=== PATIENT | male | born 1965 | race Two or more races ===

== ENCOUNTER 2024-12-06 15:32 | Inpatient (IN) | payer BC, OTHER ==
[~2024-12-06] VITALS: Ht 172.7 cm; Wt 95.6 kg
--- NOTE | 2024-12-06 15:40 | ECG ---
[facility] Test Date: 2024-12-06 Test Time: 15:39:48 Pat Name: FELICIA COLEMAN Department: ER Room: Gender: M Disposal Worker: KM : 1965 Requested By: CHETAN ZHENG Order Number: [id number] Reading MD: Measurements Intervals [place] Rate: 97 P: 63 ND: 151 QRS: 36 QRSD: 85 T: 27 QT: 342 QTc: 435 Interpretive Statements Sinus rhythm Baseline wander in lead(s) I,II,III,aVR,aVF,V2,V3,V4,V5,V6 Please click the below link to view image of tracing.
--- NOTE | 2024-12-06 15:52 | ED.PDOC ---
HPI Comments 59 y.o male presents to the ED for a chief complaint of left sided chest pain radiating to his left arm and back associated with SOB that started 2 hours ago s/p using the restroom at home. Patient describes pain as a "deep ache", is constant, and rating a 3/10 on the pain scale. Patient reports mild SOB with the inability to take a full deep breath. Patient denies any straining in the restroom, nausea, vomiting, diarrhea, fever, chills, abdominal pain. No medical history or allergies reported. Chief Complaint: Chest Pain Time Seen by MD: 15:44 Reviewed Notes: Nurses Notes, Medications, Allergies Allergies: Coded Allergies: NO KNOWN ALLERGIES (Unverified , 12/06/24) Information Source: Patient Mode of Arrival: Ambulatory Severity: Moderate Timing: Hours (2) Duration: Since onset Location: Chest (L) Radiation: Back, Arm (L) Quality: Aching Onset: At Rest Cardiac Risk Factors: Smoker PE Risk Factors: None History of: None Modifying Factors: Nothing Associated Signs and Symptoms: SOB, Back Pain Past Medical History PAST MEDICAL HISTORY: Denies Surgical History: Denies all surgeries Family History Family History: Family hx of heart marcio Social History Smoker: Other (vape ) Alcohol: Denies ETOH Use Drugs: Denies Drug Use Lives In: Home Constitutional: denies: chills, diaphoresis, fatigue, fever, malaise, sweats, weakness, others EENTM: denies: blurred vision, double vision, ear bleeding, ear discharge, ear drainage, ear pain, ear ringing, eye pain, eye redness, hearing loss, mouth pain, mouth swelling, nasal discharge, nose bleeding, nose congestion, nose pain, photophobia, tearing, throat pain, throat swelling, voice changes, others Respiratory: reports: shortness of breath; denies: cough, hemoptysis, orthopnea, SOB at rest, SOB with excertion, stridor, wheezing, others Cardiovascular: reports: chest pain, left arm pain; denies: dizzy spells, diaphoresis, Dyspnea on exertion, edema, irregular heart beat, lightheadedness, palpitations, PND, syncope, others Gastrointestinal: denies: abdomen distended, abdominal pain, blood streaked bowels, constipated, diarrhea, dysphagia, difficulty swallowing, hematemesis, melena, nausea, poor appetite, poor fluid intake, rectal bleeding, rectal pain, vomiting, others Genitourinary: denies: burning, dysuria, flank pain, frequency, hematuria, incontinence, penile discharge, penile sore, pain, testicle pain, testicle swelling, urgency, others Neurological: denies: dizziness, fainting, headache, left sided numbness, left sided weakness, numbness, paresthesia, pre-existing deficit, right sided numbness, right sided weakness, seizure, speech problems, tingling, tremors, weakness, others Musculoskeletal: reports: back pain; denies: gout, joint pain, joint swelling, muscle pain, muscle stiffness, neck pain, others Integumetry: denies: bruises, change in color, change in hair/nails, dryness, laceration, lesions, lumps, rash, wounds, others Allergic/Immunocompromised: denies: Difficulty Healing, Frequent Infections, Hives, Itching, others Hematologic/Lymphatic: denies: anemia, blood clots, easy bleeding, easy bruising, swollen glands, others Endocrine: denies: excessive hunger, excessive sweating, excessive thirst, excessive urination, flushing, intolerance to cold, intolerance to heat, unex plained weight gain, unexplained weight loss, others Psychiatric: denies: anxiety, bipolar disorder, depression, hopeless, panic disorder, schizophrenia, sleepless, suicidal, others All Other Systems: Reviewed and Negative Physical Exam General Appearance: Moderate Distress HEENT: Normal ENT Inspection, Pharynx Normal, TMs Normal Neck: Full Range of Motion, Non-Tender, Normal, Normal Inspection Respiratory: Chest Non-Tender, Lungs Clear, No Accessory Muscle Use, No Respiratory Distress, Normal Breath Sounds Cardiovascular: No Edema, No JVD, No Murmur, No Gallop, Normal Peripheral Pulses, Regular Rate/Rhythm Breast Exam: Deferred Gastrointestinal: No Organomegaly, Non Tender, No Pulsatile Mass, Normal Bowel Sounds, Soft Genitalia: Deferred Pelvic: Deferred Rectal: Deferred Extremities: No calf tenderness, Normal capillary refill, Normal inspection, Normal range of motion, Non-tender, No pedal edema Musculoskeletal : Apperance: Normal Neurologic: Alert, 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 Was a procedure done?: No CP Differential Dx Differential Diagnosis: N/A Differential Diagnosis: Angina, Chest Wall Pain, Myocardial Infarction, Pericarditis X-Ray, Labs, Meds, VS Vital Signs Date Time Temp Pulse Resp B/P (MAP) Pulse Ox O2 Delivery O2 Flow Rate FiO2 12/06/24 16:33 91 12/06/24 15:52 97 12/06/24 15:45 98.1 95 17 199/87 (124) 96 12/06/24 15:39 97 Lab Test 12/06/24 16:39 Range/Units White Blood Count 7.5 4.4-10.8 10^3/uL Red Blood Count 5.93 H 4.5-5.90 10^6/uL Hemoglobin 17.9 H 13.5-17.5 g/dL Hematocrit 51.6 41.0-53.0 % Mean Corpuscular Volume 86.9 80.0-100.0 fL Mean Corpuscular Hemoglobin 30.1 28.0-32.0 pg Mean Corpuscular Hemoglobin Concent 34.7 32.0-36.0 g/dL Red Cell Distribution Width 13.7 11.8-14.3 % Platelet Count 211 140-450 10^3/uL Mean Platelet Volume 8.7 6.9-10.8 fL Neutrophils (%) (Auto) 75.3 37.0-80.0 % Lymphocytes (%) (Auto) 18.1 10.0-50.0 % Monocytes (%) (Auto) 4.9 0.0-12.0 % Eosinophils (%) (Auto) 1.1 0.0-7.0 % Basophils (%) (Auto) 0.6 0.0-2.0 % Neutrophils # (Auto) 5.6 1.6-8.6 10 ^3/uL Lymphocytes # (Auto) 1.4 0.4-5.4 10 ^3/uL Monocytes # (Auto) 0.4 0-1.3 10 ^3/uL Eosinophils # (Auto) 0.1 0-0.8 10 ^3/uL Basophils # (Auto) 0 0-0.2 10 ^3/uL Nucleated Red Blood Cells 0.2 % D-Dimer, Quantitative < 0.19 0.0-0.49 mg/L FEU Sodium Level 136 136-145 mmol/L Potassium Level 4.3 3.5-5.1 mmol/L Chloride Level 102 98-107 mmol/L Carbon Dioxide Level 24 20-31 mmol/L Anion Gap 10 5-15 Blood Urea Nitrogen 10 9-23 mg/dL Creatinine 0.98 0.700-1.30 mg/dL Glomerular Filtration Rate Calc 88 >90 mL/min BUN/Creatinine Ratio 10.2 10.0-20.0 Serum Glucose 361 H 74-106 mg/dL Calcium Level 10.3 8.7-10.4 mg/dL Total Bilirubin 0.4 0.2-1.0 mg/dL Aspartate Amino Transferase (AST) 14 13-40 U/L Alanine Aminotransferase (ALT) 38 7-40 U/L Alkaline Phosphatase 91 46-116 U/L Troponin I High Sensitivity 58 *H </=54 ng/L Total Protein 6.8 5.7-8.2 g/dL Albumin 4.5 3.2-4.8 g/dL XY CHEST TWO VIEWS ROUTINE IMPRESSION: Mild interstitial prominence of the mid and lower lung zones. Otherwise no evidence for acute cardiopulmonary disease. The labs are pending at this time We spoke with the patient and the patient was being admitted to the hospitalist The patient was given aspirin here in the emergency department's We are concerned that this patient may have acute coronary syndrome The troponin level came back elevated at 58 We are awaiting the repeat troponins The patient was being admitted to the hospitalist Images Reviewed?: Images reviewed and evaluated by me Time of 1ST Reevaluation: 15:48 Reevaluation 1ST: Unchanged Patient Education/Counseling: Diagnosis, Treatment, Prognosis Family Education/Counseling: No Family Present Departure 1 Departure Time of Disposition: 17:35 Impression: Primary Impression: Acute myocardial ischemia Additional Impression: Elevated troponin Disposition: 09 ADMITTED INPATIENT Admit to: Tele Condition: Fair Critical Care Note Critical Care Time?: No Stability Stability form required: Yes Unstable for transfer: Telemetry monitoring (Telemetry monitoring required), ED Physician Assesment (Clinical assesment) Heart Score Heart Score: Heart Score Response (Comments) Value History Moderate Suspicious 1 EKG Normal 0 Age 45-64 1 Risk Factors 1 or 2 risk factors 1 Troponin 1-2 x's Normal limit 1 Total 4 I personally scribed for MAVIS,CAROLINA B MD ([email or web address]) on 12/06/24 at 15:52. Electronically submitted by Giulia Hanks ([facility]). I personally scribed for CAROLINA GAMBLE MD (DVPASLE) on 12/06/24 at 16:38. Electronically submitted by Giulia Hanks ([facility]). CAROLINA GAMBLE MD Dec 06, 2024 15:52
--- NOTE | 2024-12-06 16:11 | DVH ---
XY CHEST TWO VIEWS ROUTINE CLINICAL HISTORY: CP COMPARISON: None TECHNIQUE: Frontal and lateral view of the chest was obtained FINDINGS: Lines and Tubes: None Lungs: No focal consolidation. Mild interstitial prominence of the mid and lower lung zones Pleura: No effusion. No pneumothorax. Cardiomediastinal contours: Unremarkable Bones: No acute osseous abnormality. IMPRESSION: Mild interstitial prominence of the mid and lower lung zones. Otherwise no evidence for acute cardio pulmonary disease.
[2024-12-06 17:00] LABS: Basophils # (auto) 0 10 ^3/uL (0-0.2); Basophils % (auto) 0.6 % (0.0-2.0); Eosinophils # (auto) 0.1 10 ^3/uL (0-0.8); Hemoglobin 17.9 g/dL (13.5-17.5); Lymphocytes # (auto) 1.4 10 ^3/uL (0.4-5.4); Mean Corpuscular Hemoglobin 30.1 pg (28.0-32.0); Monocytes # (auto) 0.4 10 ^3/uL (0-1.3)
[2024-12-06 17:03] LABS: Eosinophils % (auto) 1.1 % (0.0-7.0); Hematocrit 51.6 % (41.0-53.0); Lymphocytes % (auto) 18.1 % (10.0-50.0); Mean Corpuscular Hgb Conc. 34.7 g/dL (32.0-36.0); Mean Corpuscular Volume 86.9 fL (80.0-100.0); Monocytes % (auto) 4.9 % (0.0-12.0); Neutrophils # (auto) 5.6 10 ^3/uL (1.6-8.6); Neutrophils % (auto) 75.3 % (37.0-80.0); Nucleated Red Blood Cells % 0.2 %; Platelet Count (auto) 211 10^3/uL (140-450); Red Blood Cells 5.93 10^6/uL (4.5-5.90); Red Cell Distribution Width 13.7 % (11.8-14.3); White Blood Cell 7.5 10^3/uL (4.4-10.8)
[2024-12-06 17:12] LABS: Alanine Aminotransferase 38 U/L (7-40); Albumin 4.5 g/dL (3.2-4.8); Alkaline Phosphatase 91 U/L (46-116); Anion Gap 10 (5-15); Aspartate Aminotransferase 14 U/L (13-40); BUN/Creatinine Ratio 10.2 (10.0-20.0); Bilirubin, Total 0.4 mg/dL (0.2-1.0); Blood Urea Nitrogen 10 mg/dL (9-23); Calcium 10.3 mg/dL (8.7-10.4); Carbon Dioxide 24 mmol/L (20-31); Chloride 102 mmol/L (98-107); Potassium 4.3 mmol/L (3.5-5.1); Total Protein 6.8 g/dL (5.7-8.2)
[2024-12-06 17:17] LABS: Glucose 361 mg/dL (74-106); Sodium 136 mmol/L (136-145)
[2024-12-06 18:55] LABS: INR 0.91 (0.9-1.15); Partial Thromboplastin Time 26.2 SEC (24.5-34.5); Prothrombin Time 9.7 sec (9.3-11.8)
[2024-12-06] MEDS: HEPARIN SODIUM (PORCINE) 5000 UNITS/ML 1ML VIAL IV ONE (22:09)
[2024-12-06] MEDS: ASPirin 81 mg TAB PO ONE (22:09)
[2024-12-06 22:18] VITALS: PULSE 91; RESP 22; O2SAT 92
[2024-12-06] MEDS ORDERED: ONDANSETRON HCL 4 MG/2 ML VIAL IV PRN (23:15)
[2024-12-06] MEDS ORDERED: MORPHINE SULFATE INJ 2 MG/ml SYRG IV PRN (23:15)
[2024-12-06] MEDS ORDERED: NITROGLYCERIN 0.4 MG SL TAB SL PRN (23:15)
[2024-12-06] MEDS: ATORVASTATIN 20 MG TAB PO ONE (23:44)
[2024-12-07] VITALS (7 sets, daily range): BP systolic 118–167; BP diastolic 77–105; PULSE 79–102; RESP 14–22; TEMP 98.1; O2SAT 94–98
[2024-12-07] MEDS: HEPARIN DRIP/D5W 100UNITS/ML 250 ML IV SCH ×2 (00:20→08:34)
--- NOTE | 2024-12-07 00:30 | DVHHP2 ---
History of Present Illness Reason for Visit: Shortness for breath History of Present Illness 59-year-old male presents for evaluation of shortness for breath. Patient reports developing shortness for breath proximally at 12:00 p.m. today. He states the symptoms lasted until he got to the emergency department for about 3 hours. He reports left-sided chest discomfort aching/dullness. He states his symptoms were radiating to his left arm. He also reports episodes of nausea. Past Medical History Denies Past Surgical History Denies Family History Heart disease Smoke: No ALCOHOL: none Drugs: None Lives: with Family Review of Systems Review of Systems Review of systems are currently negative otherwise addressed in HPI. Allergies: Coded Allergies: NO KNOWN ALLERGIES (Unverified , 12/06/24) Medications Current Medications Medications Dose Ordered Sig/Anoop Route Start Time Stop Time Status Last Admin Dose Admin Heparin Sodium/ Dextrose 250 ml @ 10 mls/hr Q24H IV 12/06/24 18:30 12/07/24 00:20 10 MLS/HR Aspirin 162 mg DAILY PO 12/07/24 10:00 Atorvastatin Calcium 10 mg HS PO 12/07/24 22:00 Ondansetron HCl 4 mg Q4HP PRN IV 12/06/24 23:15 Nitroglycerin 0.4 mg Q5MINP PRN SL 12/06/24 23:15 Morphine Sulfate 2 mg Q30M PRN IV 12/06/24 23:15 Exam Vital Signs Vital Signs Date Time Temp Pulse Resp B/P (MAP) Pulse Ox O2 Delivery O2 Flow Rate FiO2 12/07/24 00:24 98.2 75 17 143/87 (105) 95 98.2 12/06/24 22:18 Room Air* 0 21 Exam Gen: 59-year-old male in mild distress Skin: Warm, dry, normal color and texture, no rash. HEENT: Normocephalic atraumatic, mucous membranes moist and pink. Neck: Cervical and supraclavicular nodes normal without enlargement, trachea is midline, thyroid gland is normal without masses. Pulmonary: Clear to auscultation and percussion bilaterally. Cardiac: Regular rate and rhythm. No murmur Abdomen: Soft, nontender, nondistended, bowel sounds present all 4 quadrants, no guarding, no rigidity, no organomegaly. Extremities: No cyanosis, clubbing, no edema Neuro: Cranial nerves II through XII grossly intact, normal affect and speech, no focal motor deficits. Labs/Xrays ORDERING PHYSICIAN: CAROLINA GAMBLE MD PROCEDURE(s): CXR2 - CHEST TWO VIEWS ROUTINE REASON: CP ORDER NUMBER(s): [id number], ACCESSION NUMBER(s): [id number] XY CHEST TWO VIEWS ROUTINE CLINICAL HISTORY: CP COMPARISON: None TECHNIQUE: Frontal and lateral view of the chest was obtained FINDINGS: Lines and Tubes: None Lungs: No focal consolidation. Mild interstitial prominence of the mid and lower lung zones Pleura: No effusion. No pneumothorax. Cardiomediastinal contours: Unremarkable Bones: No acute osseous abnormality. IMPRESSION: Mild interstitial prominence of the mid and lower lung zones. Otherwise no evidence for acute cardiopulmonary disease. Labs Test 12/06/24 23:25 12/06/24 16:39 Range/Units Troponin I High Sensitivity 1227 *H </=54 ng/L White Blood Count 7.5 4.4-10.8 10^3/uL Red Blood Count 5.93 H 4.5-5.90 10^6/uL Hemoglobin 17.9 H 13.5-17.5 g/dL Hematocrit 51.6 41.0-53.0 % Mean Corpuscular Volume 86.9 80.0-100.0 fL Mean Corpuscular Hemoglobin 30.1 28.0-32.0 pg Mean Corpuscular Hemoglobin Concent 34.7 32.0-36.0 g/dL Red Cell Distribution Width 13.7 11.8-14.3 % Platelet Count 211 140-450 10^3/uL Mean Platelet Volume 8.7 6.9-10.8 fL Neutrophils (%) (Auto) 75.3 37.0-80.0 % Lymphocytes (%) (Auto) 18.1 10.0-50.0 % Monocytes (%) (Auto) 4.9 0.0-12.0 % Eosinophils (%) (Auto) 1.1 0.0-7.0 % Basophils (%) (Auto) 0.6 0.0-2.0 % Neutrophils # (Auto) 5.6 1.6-8.6 10 ^3/uL Lymphocytes # (Auto) 1.4 0.4-5.4 10 ^3/uL Monocytes # (Auto) 0.4 0-1.3 10 ^3/uL Eosinophils # (Auto) 0.1 0-0.8 10 ^3/uL Basophils # (Auto) 0 0-0.2 10 ^3/uL Nucleated Red Blood Cells 0.2 % Prothrombin Time 9.7 9.3-11.8 sec Prothrombin Time INR 0.91 0.9-1.15 Activated Partial Thromboplast Time 26.2 24.5-34.5 SEC D-Dimer, Quantitative < 0.19 0.0-0.49 mg/L FEU Sodium Level 136 136-145 mmol/L Potassium Level 4.3 3.5-5.1 mmol/L Chloride Level 102 98-107 mmol/L Carbon Dioxide Level 24 20-31 mmol/L Anion Gap 10 5-15 Blood Urea Nitrogen 10 9-23 mg/dL Creatinine 0.98 0.700-1.30 mg/dL Glomerular Filtration Rate Calc 88 >90 mL/min BUN/Creatinine Ratio 10.2 10.0-20.0 Serum Glucose 361 H 74-106 mg/dL Calcium Level 10.3 8.7-10.4 mg/dL Total Bilirubin 0.4 0.2-1.0 mg/dL Aspartate Amino Transferase (AST) 14 13-40 U/L Alanine Aminotransferase (ALT) 38 7-40 U/L Alkaline Phosphatase 91 46-116 U/L Total Protein 6.8 5.7-8.2 g/dL Albumin 4.5 3.2-4.8 g/dL Assessment/Plan Assessment/Plan Assessment NSTEMI Accelerated hypertension Plan Admit the patient to telemetry to the hospitalist Continue heparin drip started by ER provider NPO Cardiology consult Continue treatment per orders. Plan discussed with: Patient My Orders Orders - JIMI CANSECO AGACNP Procedure Category Date Status Time Aspirin Tablet PHA 12/07/24 In Process 10:00 Atorvastatin (Lipitor) PHA 12/07/24 In Process 22:00 Admit ADMIT 12/06/24 Transmitted 23:03 Ondansetron Hcl PHA 12/06/24 In Process (Zofran) 23:15 Npo (Nothing By DIET 12/07/24 Transmitted Mouth) Diet Breakfast Echo 2d Mode Cardiac US 12/06/24 Logged DOP 23:03 Condition: Fair ZULEMA 12/06/24 In Process 23:03 Bedrest With Bathroom ZULEMA 12/06/24 In Process Privileg 23:03 Nitroglycerin PHA 12/06/24 In Process Sublingual (Ntrostat 23:15 Morphine Sulfate PHA 12/06/24 In Process Injection 23:15 Notify Of Changes [facility] 12/06/24 In Process From Base 23:03 Can Line Examiner For [facility] 12/06/24 In Process 24 Hours 23:03 Emergency Dysrhythmia [facility] 12/06/24 In Process Protocol 23:03 Rhythm Strips Once [facility] 12/06/24 In Process Every Shift 23:03 Oxygen By Nasal RT 12/06/24 Transmitted Cannula 23:03 Basic Metabolic Panel LAB 12/07/24 Logged 04:00 Date of Service: Dec 06, 2024 Billing Provider: JIMI CANSECO Common Visit Codes: [id number] INP/OBS CARE (HIGH) JIMI CANSECO Dec 07, 2024 00:30
[2024-12-07 04:06] LABS: Triglycerides 515 mg/dL (< 150)
[2024-12-07 04:08] LABS: HDL Cholesterol 44 mg/dL (40-59)
[2024-12-07 04:09] LABS: Cholesterol 216 mg/dL (< 200)
[2024-12-07 07:43] LABS: Chloride 101 mmol/L (98-107); Potassium 4.1 mmol/L (3.5-5.1)
[2024-12-07 07:44] LABS: Anion Gap 10 (5-15); Carbon Dioxide 24 mmol/L (20-31)
[2024-12-07 07:45] LABS: Calcium 10.1 mg/dL (8.7-10.4)
[2024-12-07 07:50] LABS: BUN/Creatinine Ratio 10.2 (10.0-20.0); Blood Urea Nitrogen 11 mg/dL (9-23); Glucose 304 mg/dL (74-106); Sodium 135 mmol/L (136-145)
[2024-12-07 07:54] LABS: INR 0.99 (0.9-1.15); Partial Thromboplastin Time 37.3 SEC (24.5-34.5); Prothrombin Time 10.5 sec (9.3-11.8)
[2024-12-07] MEDS: ASPirin 81 mg TAB PO SCH (09:59)
--- NOTE | 2024-12-07 10:08 | DVHINCON2 ---
[place] [facility] 12/07/24 1008: Date Seen: Dec 07, 2024 Referring Physician MD Mariana Reason for Consultation elevated troponin History of Present Illness This is a 59-year-old male patient who presents to the emergency room with chief complaint of chest pain. The patient reports that the chest pain began yesterday at approximately 11:00 a.m. He describes the pain as unprovoked, constant, pressure-like in nature, left-sided with radiation to his left shoulder and upper back. Associated symptoms include shortness of breath and lightheadedness. The patient reports that after approximately 3 hours of unrelieved pain he called an UBER to bring him to the emergency room. Initial twelve lead electrocardiogram reveals normal sinus rhythm with baseline wander. Initial troponin level of 58ng/L with significant up trend and peak level at 1227ng/L. Significant past medical history includes dyslipidemia and obesity. The patient denies following up with any providers in the outpatient setting and states he has not seen a primary care provider in "a really long time". Past Medical History Past medical history reviewed. No other significant than mentioned above. Past Surgical History Denies all previous surgeries Family History Family history reviewed. Social History Patient admits to vaping daily Patient denies any illicit drug use Patient denies any alcohol use Allergies: Coded Allergies: NO KNOWN ALLERGIES (Unverified , 12/06/24) Home Meds Denies taking any prescribed medications Current Medications Current Medications Medications (Trade) Dose Ordered Sig/Anoop Route PRN Reason Start Time Stop Time Status Last Admin Heparin Sodium/ Dextrose 250 ml @ 10 mls/hr Q24H IV 12/06/24 18:30 12/07/24 08:21 DC 12/07/24 00:20 Aspirin 162 mg DAILY PO 12/07/24 10:00 12/07/24 09:59 Atorvastatin Calcium (Lipitor) 10 mg HS PO 12/07/24 22:00 Ondansetron HCl (Zofran) 4 mg Q4HP PRN IV NAUSEA / VOMITING 12/06/24 23:15 Nitroglycerin (Ntrostat Sublingual) 0.4 mg Q5MINP PRN SL FOR CHEST PAIN 12/06/24 23:15 Morphine Sulfate 2 mg Q30M PRN IV FOR CHEST PAIN 12/06/24 23:15 Hydralazine HCl (Apresoline Injection) 10 mg Q6HP PRN IV SBP>150 12/07/24 00:30 Heparin Sodium/ Dextrose 250 ml @ 12 mls/hr [id number] IV 12/07/24 08:30 12/07/24 08:34 Review of Systems Constitutional: No symptom reported Ears, Nose, & Throat: No symptom reported Eyes: No symptom reported Neurological: No symptoms reported Pulmonary/Respiratory: Shortness of breath Cardiovascular: Chest pain Gastrointestinal: No symptom reported Genitourinary: No symptom reported Musculoskeletal: No symptom reported Skin: No symptom reported Psychiatric: No symptom reported Endocrine: No symptom reported Hematologic/Lymphatic: No symptom reported Vital Signs Vital Signs Date Time Temp Pulse Resp B/P (MAP) Pulse Ox O2 Delivery O2 Flow Rate FiO2 12/07/24 08:54 80 12/07/24 07:22 98.2 16 152/96 (114) 95 98.2 12/07/24 07:21 Room Air* 0 21 Physical Exam General Appearance: Cooperative. Obese Pulmonary/Respiratory: Clear, bilateral breaths sounds. Cardiovascular/Chest: Regular rate and rhythm. Peripheral Pulses: 2+ Radial (R). 2+ Radial (L). 2+ Pedal (R). 2+ Pedal (L) Abdominal Exam: Normal bowel sounds. Ankle Exam: Negative ankle edema Lower extremities: Negative lower extremity edema Neuro/Mental Status: A/OX4, coherent. Thoughts/Psych: Normal thought pattern. Appropriate mood and affect. Good judgment and insight. Appearance: No acute distress. Skin Exam: Normal inspection. Normal color. Warm and dry. Labs/Diagnostic Data Labs Test 12/07/24 09:08 12/07/24 07:09 12/07/24 02:59 12/06/24 16:39 Range/Units Troponin I High Sensitivity 758 *H </=54 ng/L Prothrombin Time 10.5 9.3-11.8 sec Prothrombin Time INR 0.99 0.9-1.15 Activated Partial Thromboplast Time 37.3 H 24.5-34.5 SEC Sodium Level 135 L 136-145 mmol/L Potassium Level 4.1 3.5-5.1 mmol/L Chloride Level 101 98-107 mmol/L Carbon Dioxide Level 24 20-31 mmol/L Anion Gap 10 5-15 Blood Urea Nitrogen 11 9-23 mg/dL Creatinine 1.08 0.700-1.30 mg/dL Glomerular Filtration Rate Calc 79 >90 mL/min BUN/Creatinine Ratio 10.2 10.0-20.0 Serum Glucose 304 H 74-106 mg/dL Calcium Level 10.1 8.7-10.4 mg/dL Hemoglobin A1c 12.4 H <5.7 % A1C Triglycerides Level 515 H < 150 mg/dL Cholesterol Level 216 H < 200 mg/dL LDL Cholesterol < 100 mg/dL HDL Cholesterol 44 40-59 mg/dL Thyroid Stimulating Hormone (TSH) 2.35 0.55-4.78 uIU/mL White Blood Count 7.5 4.4-10.8 10^3/uL Red Blood Count 5.93 H 4.5-5.90 10^6/uL Hemoglobin 17.9 H 13.5-17.5 g/dL Hematocrit 51.6 41.0-53.0 % Mean Corpuscular Volume 86.9 80.0-100.0 fL Mean Corpuscular Hemoglobin 30.1 28.0-32.0 pg Mean Corpuscular Hemoglobin Concent 34.7 32.0-36.0 g/dL Red Cell Distribution Width 13.7 11.8-14.3 % Platelet Count 211 140-450 10^3/uL Mean Platelet Volume 8.7 6.9-10.8 fL Neutrophils (%) (Auto) 75.3 37.0-80.0 % Lymphocytes (%) (Auto) 18.1 10.0-50.0 % Monocytes (%) (Auto) 4.9 0.0-12.0 % Eosinophils (%) (Auto) 1.1 0.0-7.0 % Basophils (%) (Auto) 0.6 0.0-2.0 % Neutrophils # (Auto) 5.6 1.6-8.6 10 ^3/uL Lymphocytes # (Auto) 1.4 0.4-5.4 10 ^3/uL Monocytes # (Auto) 0.4 0-1.3 10 ^3/uL Eosinophils # (Auto) 0.1 0-0.8 10 ^3/uL Basophils # (Auto) 0 0-0.2 10 ^3/uL Nucleated Red Blood Cells 0.2 % D-Dimer, Quantitative < 0.19 0.0-0.49 mg/L FEU Total Bilirubin 0.4 0.2-1.0 mg/dL Aspartate Amino Transferase (AST) 14 13-40 U/L Alanine Aminotransferase (ALT) 38 7-40 U/L Alkaline Phosphatase 91 46-116 U/L Total Protein 6.8 5.7-8.2 g/dL Albumin 4.5 3.2-4.8 g/dL Assessment NSTEMI, rule out coronary artery disease Hypertensive urgency, resolved Dyslipidemia Rule out structural heart disease Uncontrolled Type 2 diabetes mellitus (Hgb A1c 12.4%), newly diagnosed Morbid obesity Plan/Recommendation We will continue with the following plan/recommendations (Dr. Lui): * Transthoracic echocardiogram to evaluate cardiac function * Chest pain protocol * YUSUF score: 3 points * HEART score: 6 points * Continue heparin drip per pharmacy protocol * Aggressive BP control * Lipid-lowering agent * Cardiac surveillance Case discussed with . Given the patient's clinical presentation, significant comorbidities, and elevated troponin level, the patient may benefit from a coronary angiogram with left heart catheterization. The procedure was discussed with the patient full detail including risks and benefits. Risks include but are not limited to bleeding, contrast induced nephropathy, stroke, and even . The patient understands and is agreeable to undergo the procedure. We will schedule the patient at first availability on 12/07/24. Thank you for allowing us to care for this patient. Please call with any questions or concerns. Critical care time spent: 41 minutes This medical document was created using an electronic medical record system with voice recognition software and computerized dictation system. Although this document has been carefully reviewed, there might still be some phonetic and typographical errors. Occasional wrong-word or ``sound-alike substitutions may have occurred due to the inherent limitations of voice recognition software. These areas are purely typographical due to imperfections of the software programs and do not reflect any compromise in the patient's medical care. Please read the chart carefully and recognize, using context, where these substitutions have occurred. Plan discussed with: Patient NYHA 2 Physical activity limitations: NA Date of Service: Dec 07, 2024 Billing Provider: [facility] [place] [facility] Common Codes: [id number] INP/OBS CARE (High) Cardiology Consultation Codes: [id number] CONSULT <45MIN NEERAJ LUI MD 12/07/24 1854: Allergies: Coded Allergies: NO KNOWN ALLERGIES (Unverified , 12/06/24) Plan/Recommendation non compliant pt doesnt see doctor markedly abnormal labs stt [facility] very high risk pt 40 mins critical care maude e spent Plan discussed with: Patient [place],MATILDETERRIE BADILLO Dec 07, 2024 10:08 NEERAJ LUI MD Dec 07, 2024 18:54
--- NOTE | 2024-12-07 12:31 | DVHSR ---
APPROVED REPORT EXAM: Two-dimensional and M-mode echocardiogram with Doppler and color Doppler. Blood Pressure: 152/96 mmHg INDICATION Chest Pain RISK FACTORS Obesity: Height: 5'8", Weight: 220 DIMENSIONS LVDd3.6 (3.8-5.7cm)LA (2D)3.0 (1.9-4.0cm)Aortic Root3.4 (2.0-3.7cm) LVDs2.6 (2.5-4.0cm)LA (MM) (1.9-4.0cm)Aortic Cusp Exc1.6 (1.5-2.0cm) EF (%) 55.0 (55-70%)Rt. Atrium3.0 (1.9-4.0cm)Asc. Aorta cm IVSd1.0 (0.7-1.1cm)RV (D)3.2 (1.8-2.4cm) PWd1.0 (0.7-1.1cm) Mitral Valve MitralMitral Stenosis E wave0.65m/sMV Mean GR.mmHg A wave0.85m/sMV Peak GR.mmHg E/A ratio0.82D MVAcm2 DECEL [id number] 1/2 Timems Aortic Valve Aortic ValveAortic Stenosis V11.20m/Marleni Mean GR.4mmHg V21.27m/Marleni Peak GR.6mmHg LVOT Diameter1.8 (1.8-2.4cm)Doppler AVA2.40cm2 Other Information Technically limited study due to body habitus. Conclusion limited study lvef 55% by visual estimate normal rv function no severe valve abnormalities noted
[2024-12-07 13:00] LABS: Amphetamine Screen, Urine Neg (NEGATIVE); Barbiturate Scree,Urine Neg (NEGATIVE); Benzodiazephine Screen, Urine Neg (NEGATIVE); Cannabinoid Screen, Urine Neg (NEGATIVE); Cocaine Screen, Urine Neg (NEGATIVE); Opiate Scree,Urine Neg (NEGATIVE); Phencyclidine Screen, Urine Neg (NEGATIVE)
--- NOTE | 2024-12-07 13:42 | ECG ---
[facility] Test Date: 2024-12-06 Test Time: 18:30:01 Pat Name: FELICIA COLEMAN Department: er Room: [address] [place] [address] Gender: M Fitness Assistant: eric : 1965 Requested By: CHETAN ZHENG Order Number: [id number] Reading MD: Measurements Intervals [place] Rate: 95 P: 69 [place]: 140 QRS: 47 QRSD: 75 T: 33 QT: 330 QTc: 415 Interpretive Statements Sinus rhythm Please click the below link to view image of tracing.
--- NOTE | 2024-12-07 13:42 | ECG ---
[facility] Test Date: 2024-12-06 Test Time: 16:33:57 Pat Name: FELICIA COLEMAN Department: ER Room: [address] [place] [address] Gender: M Health Care Analyst: VARIDNER : 1965 Requested By: CHETAN ZHENG Order Number: [id number] Reading MD: Measurements Intervals [place] Rate: 91 P: 68 [place]: 151 QRS: 50 QRSD: 72 T: 44 QT: 330 QTc: 407 Interpretive Statements Sinus rhythm Minimal ST depression, diffuse leads Please click the below link to view image of tracing.
--- NOTE | 2024-12-07 13:50 | DVHPN2 ---
Subjective 59-year-old male with no past medical history in the past comes with chief complaint of chest pain his troponins were high and he was diagnosed with NSTEMI He is scheduled for heart catheterization today Changes from previous H/P or p: Changes Objective Vitals Vital Signs Date Time Temp Pulse Resp B/P (MAP) Pulse Ox O2 Delivery O2 Flow Rate FiO2 12/07/24 12:00 94 12/07/24 10:01 16 151/94 (113) 96 12/07/24 08:50 97.7 97.7 12/07/24 07:21 Room Air* 0 21 Intake/Output Intake and Output 12/07/24 07:00 Intake Total 60 ml Balance 60 ml Intake IV Total 60 ml General Appearance: Alert, Oriented X3, Cooperative, No acute distress Lungs: Clear to auscultation, Normal air movement Cardiovascular: Regular rate, Normal S1, Normal S2 Abdomen: Normal bowel sounds, Soft, No tenderness Extremities: No edema Medications Current Medications Medications Dose Ordered Sig/Anoop Route Start Time Stop Time Status Last Admin Dose Admin Aspirin 162 mg DAILY PO 12/07/24 10:00 12/07/24 09:59 162 MG Ondansetron HCl 4 mg Q4HP PRN IV 12/06/24 23:15 Nitroglycerin 0.4 mg Q5MINP PRN SL 12/06/24 23:15 Morphine Sulfate 2 mg Q30M PRN IV 12/06/24 23:15 Hydralazine HCl 10 mg Q6HP PRN IV 12/07/24 00:30 Heparin Sodium/ Dextrose 250 ml @ 12 mls/hr [id number] IV 12/07/24 08:30 12/07/24 08:34 12 MLS/HR Atorvastatin Calcium 80 mg HS PO 12/07/24 22:00 Laboratory Results Laboratory Tests 12/06/24 16:39 12/07/24 07:09 Chemistry Test 12/06/24 16:39 12/07/24 07:09 Albumin 4.5 g/dL (3.2-4.8) Calcium Level 10.3 mg/dL (8.7-10.4) 10.1 mg/dL (8.7-10.4) Total Protein 6.8 g/dL (5.7-8.2) Coagulation Test 12/06/24 16:39 12/07/24 07:09 Prothrombin Time 9.7 sec (9.3-11.8) 10.5 sec (9.3-11.8) Prothrombin Time INR 0.91 (0.9-1.15) 0.99 (0.9-1.15) Activated Partial Thromboplast Time 26.2 SEC (24.5-34.5) 37.3 SEC (24.5-34.5) H D-Dimer, Quantitative < 0.19 mg/L FEU (0.0-0.49) Lipid panel Test 12/07/24 02:59 Cholesterol Level 216 mg/dL (< 200) H HDL Cholesterol 44 mg/dL (40-59) Triglycerides Level 515 mg/dL (< 150) H LFT Test 12/06/24 16:39 Alanine Aminotransferase (ALT) 38 U/L (7-40) Alkaline Phosphatase 91 U/L (46-116) Aspartate Amino Transferase (AST) 14 U/L (13-40) Total Bilirubin 0.4 mg/dL (0.2-1.0) HgA1c, TSH Test 12/07/24 02:59 Hemoglobin A1c 12.4 % A1C (<5.7) H Thyroid Stimulating Hormone (TSH) 2.35 uIU/mL (0.55-4.78) Assessment/Plan Assessment/Plan NSTEMI Rule out coronary artery disease Hypertensive urgency Mixed hyperlipidemia Uncontrolled type 2 diabetes, newly diagnosed Morbid obesity Plan NPO Heart catheterization today Cardiology consult Echocardiogram was done negative Lipitor Aspirin Heparin drip Monitor the patient closely Full code Advance directives discussed for the 17 minute Plan discussed with: Patient Date of Service: Dec 07, 2024 Billing Provider: ELYSIA ROPER MD Common Visit Codes: 87941-[id number] INP/OBS CARE(HIGH) Secondary Visit Codes: 50028-[id number] CARE PLAN 30 MINUTES ELYSIA ROPER MD Dec 07, 2024 13:50
[2024-12-07 15:48] LABS: INR 1.01 (0.9-1.15); Partial Thromboplastin Time 43.2 SEC (24.5-34.5); Prothrombin Time 10.7 sec (9.3-11.8)
[2024-12-07] MEDS ORDERED: HEPARIN DRIP/D5W 100UNITS/ML 250 ML IV SCH (16:15)
[2024-12-07] MEDS: fentaNYL CITRATE 100 MCG/2 ML VL ONE (17:32)
[2024-12-07] MEDS: ANGIOMAX 250 MG VIAL IV ONE (17:32)
[2024-12-07] MEDS: VERAPAMIL 2.5MG/ML INJ 2ML VIAL IV ONE (17:32)
[2024-12-07] MEDS: SODIUM CHL 0.9% 0 ML ONE (17:33)
[2024-12-07] MEDS: LIDOCAINE 2%HCL (LOCAL ANESTH.) INJ 20ML MDV ONE (17:33)
[2024-12-07] MEDS: MIDAZOLAM HCL 2MG/2ML 2ml VIAL (1mg/ml) ONE (17:33)
[2024-12-07] MEDS: IODIXANOL 320MG/ML 100ML BTL IV ONE (17:33)
[2024-12-07] MEDS: GELATIN 1 SPONGE SIZE 50 TOP ONE (17:33)
[2024-12-07] MEDS: HEPARIN SODIUM (PORCINE) 5000 UNITS/ML 1ML VIAL ONE (18:04)
[2024-12-07] MEDS: TICAGRELOR 90 MG TAB ONE (18:24)
[2024-12-07] MEDS: NITROGLYCERIN 0.4MG/DOSE SPRAY 4.9GM ONE (18:34)
[2024-12-07] MEDS: hydrALAZINE HCL 20 MG/ML VL ONE (18:37)
--- NOTE | 2024-12-07 18:49 | DVHOP2 ---
Operative Report Operative Report CARDIAC VOCATIONAL CASE MANAGER PROCEDURE REPORT [place], [place] Date of Service: Core Cleaner: Neeraj Lui MD PROCEDURES PERFORMED: Coronary angiogram, left heart catheterization, conscious sedation administration and supervision, less than 15 minutes; fluoroscopy use and interpretation. sedation 15-30 mins, sedation 31-45 mins, PTCA 1 vessel , PCI 1 vessel, PTCA 2nd vessel, PCI 2nd vessel, acute PR intervention PREOPERATIVE DIAGNOSES: nstemi POSTOP DIAGNOSIS: nstemi DESCRIPTION OF PROCEDURE: The patient or appropriate family signed informed consent understanding the risks, benefits and alternatives of the procedure, they wished to proceed. The patient was brought to the cardiac laboratory inspector in n.p.o. state. The patient was prepped in a sterile fashion. Sedation was used per cardiac cath protocol. I administered 2 mL of 2% lidocaine to the right wrist. With an antegrade front wall puncture. I cannulated the right radial artery and placed a 6-Thai Glidesheath slender. Next, an intra-arterial spasmolytic was administered. Next, a - 6French Rudy catheter and XB 3.5 guide and were used for coronary angiogram and LVEDP measurement and pressure pullback. At the completion of procedure, all guides and wires were removed, and there were no immediate complications. FINDINGS: RCA: Moderate vessel off the right sinus of Valsalva, there is no severe flow limiting stenosis. 30-40% mid vessel stenosis. PDA and RPL dominant vessel with mild diffuse plaque. LEFT MAIN: Moderate size left main, it bifurcates into LAD and circumflex. no severe stenosis CIRCUMFLEX: Moderate caliber vessel coming off the left main . prox CX is patent mid CX has sequential 85% and 99% stenosis into distal OM branch . LAD: LAD is a moderate caliber vessel coming of the left main. 95% prox LAD stenosis. INTERVENTION: We decided to proceed with coronary intervention. I started with a 6F ____XB 3.5 Guide to intubate the _LM _. Angiomax bolus and gtt was started. Following this, I decided to wire using an .014 BMW across the LAD lesion with ease. At this time, we performed balloon angioplasty with a _2.5 x 20 mm balloon over __15__ seconds w. Following this, I decided to place a stent using a 3. 0 x30 mm and 2.5 x 12 mm (more distal ) mm onyx____ stent inflated up to __15___ ATMS over 15 seconds with two separate inflations. Following this, the stent balloon removed and angio performed showing 0% residual stenosis. Then i rewired into distal CX with same bmw. i used a 2.25 x 20 mm balloon for ptca up to 10 atms with 2 separate inflations. then i planned for 2 stents to long lesion and distally did a 2.5 x 26 mm MICHELLE up to 16 atms with 2 inflations and then a 3.0 x 26 mm MICHELLE up to 16 atms with 2 inflations each 15 seconds with 3 mm overlap. following this ,all balloons removed and angio showed 0% stenosis. YUSUF pre/post: 3./3 CONCLUSIONS: 1. successful PCI to prox LAD 95% stenosis with 2 MICHELLE 2. successful PCI to mid to distal CX lesions 85% and 99% with 2 MICHELLE PLAN: Aggressive risk factor modification and medical management for the patient. DAPT x 1 year uninterrupted NEERAJ LUI MD Dec 07, 2024 18:49
[2024-12-07] MEDS: MORPHINE SULFATE INJ 2 MG/ml SYRG IV ONE (19:31)
[2024-12-07] MEDS: LORazepam 2MG/ML-1ML VIAL IV ONE (19:33)
[2024-12-07] MEDS: METOPROLOL TARTRATE 25 MG TAB PO SCH (22:00)
[2024-12-07] MEDS: ATORVASTATIN 20 MG TAB PO SCH (22:00)
[2024-12-07] MEDS ORDERED: ATORVASTATIN 20 MG TAB PO SCH (22:00)
[2024-12-08 05:00] VITALS: BP 153/74; PULSE 81; RESP 18; TEMP 98.3; O2SAT 100
[2024-12-08] MEDS: TICAGRELOR 90 MG TAB PO SCH (06:11)
[2024-12-08 07:10] LABS: Basophils # (auto) 0 10 ^3/uL (0-0.2); Basophils % (auto) 0.4 % (0.0-2.0); Eosinophils # (auto) 0.2 10 ^3/uL (0-0.8); Monocytes # (auto) 0.5 10 ^3/uL (0-1.3); Neutrophils # (auto) 6.5 10 ^3/uL (1.6-8.6)
[2024-12-08 07:12] LABS: Hemoglobin 17.7 g/dL (13.5-17.5); Lymphocytes # (auto) 1.3 10 ^3/uL (0.4-5.4); Lymphocytes % (auto) 15.1 % (10.0-50.0); Mean Corpuscular Hemoglobin 29.9 pg (28.0-32.0); Mean Corpuscular Hgb Conc. 34.1 g/dL (32.0-36.0); Mean Corpuscular Volume 87.8 fL (80.0-100.0); Monocytes % (auto) 5.8 % (0.0-12.0); Neutrophils % (auto) 76.7 % (37.0-80.0); Nucleated Red Blood Cells % 0.2 %; Platelet Count (auto) 206 10^3/uL (140-450); Red Blood Cells 5.93 10^6/uL (4.5-5.90); Red Cell Distribution Width 14.2 % (11.8-14.3); White Blood Cell 8.5 10^3/uL (4.4-10.8)
[2024-12-08 07:37] LABS: Alanine Aminotransferase 38 U/L (7-40); Albumin 4.2 g/dL (3.2-4.8); Alkaline Phosphatase 85 U/L (46-116); Anion Gap 9 (5-15); Aspartate Aminotransferase 33 U/L (13-40); BUN/Creatinine Ratio 13.1 (10.0-20.0); Blood Urea Nitrogen 11 mg/dL (9-23); Carbon Dioxide 24 mmol/L (20-31); Chloride 104 mmol/L (98-107); Magnesium 1.9 mg/dL (1.6-2.6); Sodium 137 mmol/L (136-145)
[2024-12-08 07:38] LABS: Total Protein 6.7 g/dL (5.7-8.2)
[2024-12-08 07:53] LABS: Bilirubin, Total 1.3 mg/dL (0.2-1.0); Glucose 210 mg/dL (74-106)
[2024-12-08 08:00] VITALS: PULSE 77; PULSE 86; RESP 18
[2024-12-08 08:30] VITALS: BP 164/88; PULSE 86; RESP 18; TEMP 97.9; O2SAT 96
[2024-12-08] MEDS: hydrALAZINE HCL 20 MG/ML VL IV PRN (09:29)
[2024-12-08] MEDS ORDERED: METO25TA93 PO (10:22)
[2024-12-08] MEDS ORDERED: ATOR80TA PO (10:22)
[2024-12-08] MEDS ORDERED: ASPI-543 PO (10:22)
[2024-12-08] MEDS ORDERED: LISI10TA34 PO (10:22)
[2024-12-08] MEDS ORDERED: METF-370 PO (10:22)
[2024-12-08] MEDS ORDERED: TICA90TA PO (10:22)
--- NOTE | 2024-12-08 10:28 | DVHDS2 ---
Discharge Summary Date of Admission Dec 06, 2024 at 23:03 Date of Discharge: Dec 08, 2024 Labs/Diagnostic Data: Laboratory Results Test 12/08/24 06:30 12/07/24 15:00 12/07/24 11:30 12/07/24 11:03 White Blood Count 8.5 10^3/uL (4.4-10.8) Red Blood Count 5.93 10^6/uL (4.5-5.90) Hemoglobin 17.7 g/dL (13.5-17.5) Hematocrit 52.0 % (41.0-53.0) Mean Corpuscular Volume 87.8 fL (80.0-100.0) Mean Corpuscular Hemoglobin 29.9 pg (28.0-32.0) Mean Corpuscular Hemoglobin Concent 34.1 g/dL (32.0-36.0) Red Cell Distribution Width 14.2 % (11.8-14.3) Platelet Count 206 10^3/uL (140-450) Mean Platelet Volume 8.5 fL (6.9-10.8) Neutrophils (%) (Auto) 76.7 % (37.0-80.0) Lymphocytes (%) (Auto) 15.1 % (10.0-50.0) Monocytes (%) (Auto) 5.8 % (0.0-12.0) Eosinophils (%) (Auto) 2.0 % (0.0-7.0) Basophils (%) (Auto) 0.4 % (0.0-2.0) Neutrophils # (Auto) 6.5 10 ^3/uL (1.6-8.6) Lymphocytes # (Auto) 1.3 10 ^3/uL (0.4-5.4) Monocytes # (Auto) 0.5 10 ^3/uL (0-1.3) Eosinophils # (Auto) 0.2 10 ^3/uL (0-0.8) Basophils # (Auto) 0 10 ^3/uL (0-0.2) Nucleated Red Blood Cells 0.2 % Sodium Level 137 mmol/L (136-145) Potassium Level 4.0 mmol/L (3.5-5.1) Chloride Level 104 mmol/L (98-107) Carbon Dioxide Level 24 mmol/L (20-31) Anion Gap 9 (5-15) Blood Urea Nitrogen 11 mg/dL (9-23) Creatinine 0.84 mg/dL (0.700-1.30) Glomerular Filtration Rate Calc 100 mL/min (>90) BUN/Creatinine Ratio 13.1 (10.0-20.0) Serum Glucose 210 mg/dL (74-106) Calcium Level 10.0 mg/dL (8.7-10.4) Magnesium Level 1.9 mg/dL (1.6-2.6) Total Bilirubin 1.3 mg/dL (0.2-1.0) Aspartate Amino Transferase (AST) 33 U/L (13-40) Alanine Aminotransferase (ALT) 38 U/L (7-40) Alkaline Phosphatase 85 U/L (46-116) Total Protein 6.7 g/dL (5.7-8.2) Albumin 4.2 g/dL (3.2-4.8) Prothrombin Time 10.7 sec (9.3-11.8) Prothrombin Time INR 1.01 (0.9-1.15) Activated Partial Thromboplast Time 43.2 SEC (24.5-34.5) Urine Opiates Screen Neg (NEGATIVE) Urine Fentanyl Screen Neg (NEGATIVE) Urine Barbiturates Screen Neg (NEGATIVE) Urine Phencyclidine Screen Neg (NEGATIVE) Urine Amphetamines Screen Neg (NEGATIVE) Urine Benzodiazepines Screen Neg (NEGATIVE) Urine Cocaine Screen Neg (NEGATIVE) Urine Cannabinoids Screen Neg (NEGATIVE) Troponin I High Sensitivity 642 ng/L (</=54) Test 12/07/24 02:59 12/06/24 16:39 Hemoglobin A1c 12.4 % A1C (<5.7) Triglycerides Level 515 mg/dL (< 150) Cholesterol Level 216 mg/dL (< 200) LDL Cholesterol mg/dL (< 100) HDL Cholesterol 44 mg/dL (40-59) Thyroid Stimulating Hormone (TSH) 2.35 uIU/mL (0.55-4.78) D-Dimer, Quantitative < 0.19 mg/L FEU (0.0-0.49) Other Laboratory Tests 12/08/24 06:30 Brief Hx & Hospital Course: Final diagnoses: Acute myocardial infarction NSTEMI Coronary artery disease status post stent placement x2 Hypertensive urgency Hypertensive Mixed hyperlipidemia Uncontrolled type 2 diabetes, newly diagnosed Morbid obesity 59-year-old male with no past medical history in the past came with chest pain and was diagnosed with NSTEMI requiring angiogram He had successful PCI to the proximal LAD and to the mid and distal circumflex with a total of 2 stents He was also found to be new diabetic His blood pressure was elevated His lipid panel was elevated He was started on aspirin and Brilinta and Lipitor and metoprolol His blood pressure has improved is still on the high side Discharged home on: Aspirin 81 mg daily Brilinta 90 mg twice a day Lipitor 80 mg daily Metoprolol XL 25 mg daily Lisinopril 10 mg daily Metformin 500 mg twice a day Hold the metformin 48 hours since the angiogram, start taking it on 12/09/2024 The patient does not have a PCP, we will assist with finding a new PCP for him Light duty Follow up with the PCP as soon as possible Diet and exercise and lifestyle modifications were discussed with the patient Stable for discharge Condition at Discharge: Stable Final Diagnosis/Problems List Acute myocardial infarction NSTEMI Coronary artery disease status post stent placement x2 Hypertensive urgency Hypertensive Mixed hyperlipidemia Uncontrolled type 2 diabetes, newly diagnosed Morbid obesity Discharge Disposition: Home SNF Discharge Will this Physician continue t: No Discharge Instruct/Medications Diet: Consistent carbohydrate, Cardiac 2g Na,low cholest Activity: Light activity Follow Up/Referral: PCP as soon as possible Medications: Metformin Lipitor Aspirin Brilinta Metoprolol Lisinopril Discharge Statement: "Patient was advised to return to the ER or call 911 if any headaches, dizziness, shortness of breath, chest pain, abdominal pain, bleeding, fevers, or worsening of medical condition. Patient was counseled about treatment plan, medications, possible side effects, patientverbalized understanding. All questions were answered to the best of my ability. This discharge took greater then 30 minutes in planning, reviewing documentation, counseling the patient, and discussing with other team members." ASSESSMENT ASSESSMENT Assessment Acute myocardial infarction NSTEMI Coronary artery disease status post stent placement x2 Hypertensive urgency Hypertensive Mixed hyperlipidemia Uncontrolled type 2 diabetes, newly diagnosed Morbid obesity Date of Service: Dec 08, 2024 Billing Provider: ELYSIA ROPER MD Common Visit Codes: 92809-CFK/OBS DISCH DAY >30min ELYSIA ROPER MD Dec 08, 2024 10:27
[2024-12-08 11:49] VITALS: BP 164/88; PULSE 86; RESP 16; TEMP 98; O2SAT 97
--- NOTE | 2024-12-08 11:50 | ECG ---
[facility] Test Date: 2024-12-07 Test Time: 19:14:07 Pat Name: FELICIA COLEMAN Department: Room: 0246T Gender: M Neighborhood Coordinator: : 1965 Requested By: NEERAJ LUI Order Number: [id number] Reading MD: Measurements Intervals [place] Rate: 97 P: 75 [place]: 144 QRS: 51 QRSD: 64 T: 47 QT: 360 QTc: 457 Interpretive Statements Normal sinus rhythm ST abnormality, possible digitalis effect Please click the below link to view image of tracing.
[2024-12-08] MEDS ORDERED: CLOP75TA28 PO (12:00)
--- NOTE | 2024-12-09 13:56 | ECG ---
[facility] Test Date: 2024-12-07 Test Time: 08:54:38 Pat Name: FELICIA COLEMAN Department: ER Room: 0246T A Gender: M Furniture Dipper: ERIKA : 1965 Requested By: CAROLINA GAMBLE Order Number: [id number] Reading MD: Measurements Intervals [place] Rate: 80 P: 61 [place]: 146 QRS: 38 QRSD: 83 T: 25 QT: 370 QTc: 427 Interpretive Statements Sinus rhythm Please click the below link to view image of tracing.
== END 2024-12-08 14:49 | disposition home or self-care (01) | DRG 321 ==
LOC: ER 15:32 → TELE 23:03 → TELE-EAST 12-07 19:55
PROVIDERS: ADMIT Nurse Practitioner; ATTEND Internal Medicine Geriatric Medicine
PROC: 027137Z Dilation of Coronary Artery, Two Arteries with Four or More Drug-eluting Intraluminal Devices, Percutaneous Approach (ICD-10-PCS; principal; 2024-12-07)
PROC: B211YZZ Fluoroscopy of Multiple Coronary Arteries using Other Contrast (ICD-10-PCS; 2024-12-07)
PROC: 4A023N7 Measurement of Cardiac Sampling and Pressure, Left Heart, Percutaneous Approach (ICD-10-PCS; 2024-12-07)
DX: I21.4 Non-ST elevation (NSTEMI) myocardial infarction (principal); I25.10 Atherosclerotic heart disease of native coronary artery without angina pectoris; E11.65 Type 2 diabetes mellitus with hyperglycemia; E78.2 Mixed hyperlipidemia; I16.0 Hypertensive urgency; E66.01 Morbid (severe) obesity due to excess calories; I10 Essential (primary) hypertension; F17.290 Nicotine dependence, other tobacco product, uncomplicated; Z68.32 Body mass index [BMI] 32.0-32.9, adult; Z79.82 Long term (current) use of aspirin; Z79.899 Other long term (current) drug therapy; Z79.02 Long term (current) use of antithrombotics/antiplatelets; Z79.84 Long term (current) use of oral hypoglycemic drugs
CPT/HCPCS: 36415; 71046; 80048; 80053; 80061; 80307; 83036; 83735; 84443; 84484; 85025; 85379; 85610; 85730; 93005; 93306; 99152; C1874; G0378; J2250; Q9967

== ENCOUNTER → 2025-04-28 | Outpatient (CLI) | payer BC ==
[~2025-04-28] MED LIST: ASPI-543 PO; ATOR80TA PO; CLOP75TA28 PO; LISI10TA34 PO; METF-370 PO; METO25TA93 PO
[2025-04-28 06:34] LABS: Hematocrit 42.8 % (41.0-53.0); Hemoglobin 14.6 g/dL (13.5-17.5); Mean Corpuscular Hemoglobin 29.4 pg (28.0-32.0); Mean Corpuscular Volume 86.1 fL (80.0-100.0); Nucleated Red Blood Cells % 0.0 %
[2025-04-28 06:38] LABS: Protein, Urine 17.7 mg/dL (1-14); Urine Protein, UAD Negative (Negative)
[2025-04-28 06:45] LABS: Alanine Aminotransferase 19 U/L (7-40); Albumin 4.5 g/dL (3.2-4.8); Alkaline Phosphatase 59 U/L (46-116); Anion Gap 8 (5-15); BUN/Creatinine Ratio 17.0 (10.0-20.0); Bilirubin, Total 0.5 mg/dL (0.2-1.0); Blood Urea Nitrogen 16 mg/dL (9-23); Calcium 10.2 mg/dL (8.7-10.4); Carbon Dioxide 25 mmol/L (20-31); Chloride 106 mmol/L (98-107); Cholesterol 142 mg/dL (< 200); Potassium 4.1 mmol/L (3.5-5.1); Sodium 139 mmol/L (136-145); Total Protein 6.9 g/dL (5.7-8.2)
[2025-04-28 06:52] LABS: Glucose 151 mg/dL (74-106); Triglycerides 156 mg/dL (< 150)
[2025-04-28 06:53] LABS: HDL Cholesterol 37 mg/dL (40-59)
== END | disposition home or self-care (01) ==
LOC: LAB 06:04
PROVIDERS: ATTEND Internal Medicine
DX: I10 Essential (primary) hypertension (principal); E11.8 Type 2 diabetes mellitus with unspecified complications
CPT/HCPCS: 36415; 80053; 80061; 81001; 82043; 82570; 84156; 84439; 84443; 85025